=== PATIENT | female | born 1975 | race Caucasian/White ===

== ENCOUNTER 2016-10-21 21:02 | Emergency (ER) | payer OTHER ==
[~2016-10-21 21:02] MED LIST: BACTRIM DS TABL1 TA1 PO; CIPRO PO; METRONIDAZOLE PO; NO MEDICATIONS; PHENERGAN25 M1 PO; VOLTAREN75 MG PO; ZOFRAN PO
[2016-10-21] MEDS ORDERED: NO MEDICATIONS (21:37)
== END 2016-10-21 22:35 | disposition home or self-care (01) ==
LOC: SED 21:02
DX: K08.89 Other specified disorders of teeth and supporting structures (principal); F41.9 Anxiety disorder, unspecified; F17.210 Nicotine dependence, cigarettes, uncomplicated
CPT/HCPCS: 99282